=== PATIENT | female | born 1940 | race African-American/Black ===

== ENCOUNTER → 2016-10-04 | Outpatient (CLI) | payer MEDICARE ==
--- NOTE | ~2016-10-04 | CT114 ---
[facility] A Service of [facility] RADIOLOGY TEXT RESULTS PATIENT: MADDI VOGT LOCATION: [facility] : 38 UNIT #: [id number] AGE: [address]: Sandra Mcwilliams MD SEX: F ORDER DR: [id number] [facility] [address] [place], [place] [address] [id number] O MR#: [id number] [facility] #: [id number] NAME: MADDI VOGT : 1940 SEX: F STUDY DATE/TIME: 10/04/2016 14:21 UNIT: [facility] ROOM: STUDY DESCRIPTION: CT Soft Tissue Neck W Cont Attending Physician: Sandra Mcwilliams M.D. Referring Physician: Sandra Mcwilliams M.D. Ordering Physician: Sandra Mcwilliams M.D. Primary Care Physician: Sandra Mcwilliams M.D. MEDICAL IMAGING REPORT This report is preliminary unless electronic signature is present EXAM Soft tissue neck CT with contrast, 10/04/2016 PROCEDURE Axial contrast-enhanced soft tissue neck CT with multiplanar reformats. This CT exam was performed with one or more of the following radiation dose reduction techniques: Automatic exposure control, adjustment of mA and/or kV according to patient size, and iterative reconstruction. COMPARISON None. HISTORY Cervical lymphadenopathy for at least 1 week. FINDINGS On the right, near the angle of the mandible, there is a superficial subcutaneous low-density lesion, about 1.7 cm in size, almost certainly representing a sebaceous cyst. There is bilateral submandibular sialodochoectasia within the gland, but there is no evidence of parotid ductal dilatation and there are no parotid or submandibular stones. There are several small tonsillar pearls, and there is elongated ossification and/or calcification of the stylohyoid ligaments bilaterally. There is plaque at the cervical carotid bifurcations, though the study is not designed for evaluation of carotid stenosis, the findings suggest 0% stenosis bilaterally by NASCET criteria. There is no suspicious cervical adenopathy or mediastinal adenopathy. There are spinal degenerative changes, but there is no bone erosion or STS. [facility] A Service of [facility] RADIOLOGY TEXT RESULTS PATIENT: MADDI VOGT LOCATION: [facility] #: [id number] : [birth year] UNIT #: [id number] AGE: [address]: Sandra Mcwilliams MD SEX: F ORDER DR: milad though there is fairly extensive dental and periodontal disease, better assessed on dental examine and radiography. IMPRESSION No suspicious cervical adenopathy. There is moderately advanced dental and periodontal disease, and there is a prominent right sebaceous cyst near the angle of the mandible, but again no suspicious adenopathy is seen. No acute abnormality is identified, though there is fairly elongated ossification and/or calcification of the stylohyoid ligaments. There may be a small nodule in the isthmus of the thyroid, but by CT only about 8 mm in maximal dimension and of doubtful significance in a patient of this age, unless there is a personal or family history suggesting an increased risk of thyroid malignancy. There may be emphysematous changes in the lung apices as well. Dictated by... Jameel Euceda M.D. THIS IS AN ELECTRONICALLY VERIFIED REPORT Jameel Euceda M.D. at 10/17/2016 4:02 PM GUME/joshua TD: 10/04/2016 21:08 JOB #: [id number] MEDICAL IMAGING REPORT Page 1 of 1 COPY
--- NOTE | ~2016-10-04 | CT55 ---
[facility] A Service [facility] RADIOLOGY TEXT RESULTS PATIENT: MADDI VOGT LOCATION: [facility] : 39 UNIT #: [id number] AGE: [address]: Sandra Mcwilliams MD SEX: F ORDER DR: [id number] [facility] [address] [place], [place] [address] [id number] O MR#: [id number] Acc #: [id number] NAME: MADDI OVGT : 1940 SEX: F STUDY DATE/TIME: 10/04/2016 13:23 UNIT: [facility] ROOM: STUDY DESCRIPTION: CT Chest W Con Attending Physician: Sandra Mcwilliams M.D. Referring Physician: Sandra Mcwilliams M.D. Ordering Physician: Sandra Mcwilliams M.D. Primary Care Physician: Sandra Mcwilliams M.D. MEDICAL IMAGING REPORT This report is preliminary unless electronic signature is present EXAM CT chest with contrast. INDICATION Extensive past smoking history. Cervical lymphadenopathy. Observation for malignancy. Chronic cough. PROCEDURE Contrast-enhanced CT chest. This CT exam was performed with one or more of the following radiation dose reduction techniques: automatic exposure control, adjustment of mA and/or kV according to patient size, and iterative reconstruction. COMPARISON None. FINDINGS Mild to moderate centrilobular emphysema. No suspicious nodule. Scattered areas of scarring. No pleural fluid or pneumothorax. No pathologically enlarged adenopathy in the chest. Refer to the separately dictated neck CT for cervical findings. Knps-fg-iiihgpyu cardiomegaly. No acute findings in the included upper abdomen. Partially included left renal cysts and a nonobstructing calculus over the pole right kidney. No aggressive-appearing bone lesion. IMPRESSION 1. No acute findings. 2. Pojy-ef-hqngbbob centrilobular emphysema. 3. No suspicious pulmonary nodule or adenopathy in the chest. Dictated by... [facility] A Service [facility] RADIOLOGY TEXT RESULTS PATIENT: MADDI VOGT LOCATION: [facility] : 38 UNIT #: [id number] AGE: [address]: Sandra Mcwilliams MD SEX: F ORDER DR: Anthony Camp M.D. THIS IS AN ELECTRONICALLY VERIFIED REPORT Anthony Camp M.D. at 10/12/2016 1:57 PM BRANT/angel TD: 10/05/2016 17:02 JOB #: [id number] MEDICAL IMAGING REPORT Page 1 of 1 COPY
[2016-10-04 14:38] LABS: POC - CREATININE 0.65 mg/dL (0.44-1.03); POC - GFR >60.0 mL/min (>60)
== END | disposition home or self-care (01) ==
LOC: CCAT 13:11
PROVIDERS: Internal Medicine
DX: F17.200 Nicotine dependence, unspecified, uncomplicated (principal); R59.0 Localized enlarged lymph nodes; J43.2 Centrilobular emphysema; K05.6 Periodontal disease, unspecified; K08.9 Disorder of teeth and supporting structures, unspecified; L72.3 Sebaceous cyst; E04.1 Nontoxic single thyroid nodule
CPT/HCPCS: 70491; 71260; 82565; Q9967